=== PATIENT | male | born 1960 | race African-American/Black ===

== ENCOUNTER 2018-06-22 09:15 | Emergency (ER) | payer OTHER ==
[~2018-06-22] VITALS: Ht 180.3 cm; Wt 98.0 kg
[2018-06-22] MEDS ORDERED: HYDROCHLOROT25 MG PO (09:55)
[2018-06-22] MEDS ORDERED: ASPIRIN 81 LOW81 MG PO (09:56)
[2018-06-22] MEDS ORDERED: VASOTEC5 MG PO (09:57)
[2018-06-22 09:58] LABS: HEMATOCRIT 36.4 % (39.0-50.0); IMMATURE GRANULOCYTES 1.3 % (0.0-5.0); MEAN CELL VOLUME 80.7 fL CALC (80.0-100.0); MEAN CORPUSCULAR HGB 28.8 pG CALC (26.0-32.0); MEAN CORPUSCULAR HGB CONC 35.7 g/L CALC (32.0-36.0); NEUT# 4.64 thou/uL (1.82-7.42); RED BLOOD COUNT 4.51 mill/uL (4.70-6.10); RED CELL DISTRI WIDTH 17.8 % (11.5-15.5)
[2018-06-22 10:15] LABS: ALBUMIN 3.2 g/dL (3.2-5.0); ALKALINE PHOSPHATASE 380 u/l (38-126); ANION GAP 17 (6-22 (CALC)); BILIRUBIN, TOTAL 13.4 mg/dL (0.0-1.4); BUN 40 mg/dL (9-20); BUN/CREATININE RATIO 28 (12-20 (CALC)); CARBON DIOXIDE 21 mmol/l (22-30); CHLORIDE 88 mmol/l (95-108); CREATININE 1.4 mg/dL (0.7-1.3); GFR 52 ML/MIN (>=60 (CALC)); GFR FOR AFR.AMER. > 60 ML/MIN (>=60 (CALC)); POTASSIUM 4.7 mmol/l (3.5-5.1); SGOT/AST 602 u/l (17-59); SODIUM 121 mmol/l (137-146); TOTAL PROTEIN 8.2 g/dL (6.3-8.2)
[2018-06-22 10:18] LABS: INTERNATIONAL NORMALIZED RATIO 1.3 RATIO (0.7-1.3)
[2018-06-22 11:40] LABS: URINE BLOOD DIPSTICK NEGATIVE (NEGATIVE); URINE CLARITY CLEAR; URINE COLOR YELLOW; URINE GLUCOSE - DIPSTICK NEGATIVE (NEGATIVE); URINE KETONE NEGATIVE (NEGATIVE); URINE LEUK ESTERASE NEGATIVE (Negative); URINE NITRITE - DIPSTICK NEGATIVE (Negative); URINE PH 5.5 (4.5-8.0); URINE PROTEIN - DIPSTICK 30 mg/dL (NEG-TRACE)
[2018-06-22 11:41] LABS: URINE BILIRUBIN - DIPSTICK LARGE (NEGATIVE)
[2018-06-22 11:53] LABS: URINE SQUAMOUS EPITHELIAL CELL FEW EPI/hpf (0-FEW)
[2018-06-22 16:40] VITALS: BP 116/76
== END 2018-06-22 16:40 | disposition short-term general hospital (02) | DRG 436 ==
LOC: ED 09:15
PROVIDERS: Emergency Medicine
DX: C22.8 Malignant neoplasm of liver, primary, unspecified as to type (principal); C79.9 Secondary malignant neoplasm of unspecified site; E87.1 Hypo-osmolality and hyponatremia; B19.20 Unspecified viral hepatitis C without hepatic coma; K72.90 Hepatic failure, unspecified without coma; R60.1 Generalized edema; I10 Essential (primary) hypertension
CPT/HCPCS: Q9967